=== PATIENT | female | born 1955 | race Caucasian/White ===

== ENCOUNTER 2020-08-10 05:43 | Emergency (ER) | payer MEDICARE ==
[~2020-08-10] VITALS: Ht 154.9 cm; Wt 59.1 kg
[2020-08-10] MEDS ORDERED: ondansetron/PF 4mg/2ml inj IV ONE ×2 (05:55→06:25)
[2020-08-10] MEDS ORDERED: normal saline 1000ML IV soln IVB ONE (05:55)
[2020-08-10] MEDS ORDERED: ketorolac trometh. 30mg/ml inj. IV ONE (06:10)
[2020-08-10 06:19] LABS: HEMATOCRIT 24.8 % (35.0-45.0); HEMOGLOBIN 7.4 g/dl (12.0-16.0); MEAN CORPUSCULAR VOLUME 58.9 FL (78-98); RED BLOOD COUNT 4.21 X10'6 (4.20-5.60)
[2020-08-10 06:24] LABS: MEAN CORPUSCULAR HEMOGLOBIN 17.6 PG (27.0-31.0); MEAN CORPUSCULAR HGB CONC 29.9 g/dL (33.0-36.5); MEAN PLATELET VOLUME 8.8 FL (7.4-10.4); PLATELET COUNT 241 X10'3 (140-440); RED CELL DISTRIBUTION WIDTH 20.4 % (11.5-14.5); WHITE BLOOD COUNT 12.8 X10'3 (4.5-11.0)
--- NOTE | 2020-08-10 06:32 | NUR ---
Gaetano lin in [facility] - 08/10/20 at 0633 by FSTURR Patient resting with eyes closed
[2020-08-10 06:34] LABS: ALANINE AMINOTRANSFERASE 16 U/L (12-78); ALBUMIN 3.5 G/DL (3.4-5.0); ALBUMIN/GLOBULIN RATIO 0.9 (1.1-1.5); ALKALINE PHOSPHATASE 88 IU/L (46-116); ANION GAP 11 (8-16); ASPARTATE AMINO TRANSFERASE 28 U/L (10-37); BILIRUBIN,TOTAL 0.1 MG/DL (0.1-1.0); BLOOD UREA NITROGEN 9 MG/DL (7-18); BUN/CREATININE RATIO 11.1 (6.6-38.0); CHLORIDE 102 MMOL/L (99-107); CREATININE 0.81 MG/DL (0.40-0.90); GLUCOSE 134 MG/DL (70-104); SODIUM 138 MMOL/L (135-145); TOTAL CARBON DIOXIDE 25.1 MMOL/L (24-32); TOTAL PROTEIN 7.6 G/DL (6.4-8.2); eGFR 71 ML/MIN
[2020-08-10 06:37] LABS: LIPASE 106 U/L (73-393); TROPONIN I < 0.04 NG/ML (0.0-0.05)
[2020-08-10 07:06] LABS: TOTAL CELLS COUNTED 100
[2020-08-10 07:08] LABS: ANISOCYTOSIS 3+; MICROCYTOSIS 3+; PLATELET ESTIMATE NORMAL; POLYCHROMASIA FEW
[2020-08-10 07:09] LABS: ELLIPTOCYTES FEW; HYPOCHROMASIA 2+; LARGE PLATELETS FEW; SCHISTOCYTES FEW; TARGET CELLS FEW; TEAR DROP CELLS 1+
[2020-08-10 07:24] LABS: CLARITY,URINE SLIGHTLY CLOUDY (Clear); COLOR,URINE YELLOW (Yellow); GLUCOSE, URINE NEGATIVE (Neg); KETONES,URINE NEGATIVE (Neg); LEUKOCYTE ESTERASE ,URINE SMALL (Neg); NITRITES, URINE NEGATIVE (Neg); OCCULT BLOOD,URINE TRACE-INTACT (Neg); PROTEIN,URINE NEGATIVE (Neg); UROBILINOGEN,URINE 0.2 E.U/dL (0.2-1.0)
[2020-08-10 07:31] LABS: UA COLLECTION TYPE CLN CATCH MIDSTREAM
[2020-08-10 07:35] LABS: SQUAMOUS EPITHELIAL CELL,UR MODERATE /LPF (FEW)
[2020-08-10 07:36] LABS: BACTERIA,URINE 2+ /HPF (Neg); RBC,URINE 0-2 /HPF (0-2)
[2020-08-10] MEDS ORDERED: CIP750T PO (07:41)
[2020-08-10] MEDS ORDERED: ONDA4TAB6 PO (07:41)
[2020-08-10] MEDS ORDERED: PER5325T PO (07:48)
[2020-08-10 07:58] VITALS: BP 118/70
== END 2020-08-10 08:01 | disposition home or self-care (01) ==
LOC: ER 05:44
DX: R10.84 Generalized abdominal pain (principal); R11.2 Nausea with vomiting, unspecified; J44.9 Chronic obstructive pulmonary disease, unspecified; M79.7 Fibromyalgia; Z87.442 Personal history of urinary calculi; Z87.891 Personal history of nicotine dependence; Z79.899 Other long term (current) drug therapy
CPT/HCPCS: 36415; 74176; 80053; 81001; 83690; 84484; 85007; 85025; 87077; 87088; 87186; 96374; 96375; 99284; J1885; J2405; J7030

== ENCOUNTER 2024-11-16 12:24 | Outpatient (CLI) | payer MEDICARE, MEDICAID ==
[~2024-11-16] VITALS: Ht 149.9 cm; Wt 44.5 kg
[~2024-11-16 12:24] MED LIST: ONDA4TAB6 PO
[2024-11-16 12:52] LABS: ABG HCO3 24.4 mmol/L (21.0-28.0); ABG OXYGEN SATURATION 91.5 % (94.0-98.0); ABG PCO2 (T) 38.8 mmHg (32.0-45.0); ABG PH (T) 7.416 (7.350-7.450); ABG PO2 (T) 63.2 mmHg (83.0-108.0); ALLEN'S TEST POSITIVE; FHHb 8.2 % (0.0-5.0); FMetHb 0.3 % (0.0-1.5); FO2Hb 88.5 % (94.0-98.0); MODE ROOM AIR; TOTAL HEMOGLOBIN 13.3 G/dl (12.0-16.0)
[2024-11-16] MEDS: albuterol 2.5 MG/3 ML nebule NEB ONE (13:36)
[2024-11-16 13:37] VITALS: PULSE 90; RESP 18; O2SAT 93
[2024-11-16 13:50] VITALS: PULSE 96; RESP 20
--- NOTE | 2024-11-19 14:05 | PROCEDURE NOTE - Respiratory ---
Procedure Note-Respiratory Providers to Copies To 1: FELICITAS LECHUGA MD Procedure Name: This is a complete pulmonary function study dated November 16, 2024. Hemoglobin measurement was done as part of the study. There was also a room air blood gas obtained from this patient on the same date. Spirometry measurements: There is reduction in the forced vital capacity and the FEV1 measurements. The FEV1 ratio is in the normal range. Several of the flow rate measurements show reduction. After bronchodilator was administered, there is small but significant improvement in the FEV1 and some of the flow rate measurements. Spirometry documents obstructive ventilatory defect in the moderate severity category. Lung volume measurements: The total lung capacity is normal. There is elevation in the residual volume and functional residual capacity measurements. This indicates some degree of air trapping within the lungs. This is a common finding in obstructive lung disease. Lung diffusion measurement: The DLCO measurement is clearly reduced. It is noted that the hemoglobin measurement is normal. Airway resistance measurement: The airway resistance is clearly elevated. Conclusion: This study is abnormal. There is evidence for obstructive ventilatory defect in the moderately severe category. This is consistent with the patient's diagnosis of smoking-related COPD. The patient shows evidence of gas trapping within the lungs. This finding together with the DLCO reduction suggests the presence of a significant emphysema component to the COPD. We have no previous studies for comparison. Complete abstinence from cigarette smoking is recommended. Continued use of bronchodilator medication is recommended. A blood gas was drawn from this patient while the patient was breathing room air. The blood pH is normal. The pCO2 is normal. The room air PO2 level is clearly reduced at 63 mmHg. Carbon monoxide was detected at a level of 3%. This suggests recent smoking by the patient. TASHIA STAPLETON MD Nov 19, 2024 14:05
== END 2024-11-16 23:59 | disposition home or self-care (01) ==
LOC: RT 12:24
PROVIDERS: ATTEND Surgery
DX: R91.8 Other nonspecific abnormal finding of lung field (principal); J98.4 Other disorders of lung
CPT/HCPCS: 36600; 82803; 85018; 94060; 94727; 94729; 94760